=== PATIENT | female | born 1990 | race African-American/Black ===

== ENCOUNTER 2022-07-09 06:07 | Emergency (ER) | payer MEDICAID ==
[~2022-07-09] VITALS: Ht 182.9 cm; Wt 132.0 kg
[2022-07-09 06:45] VITALS: BP 134/85
[2022-07-09] MEDS ORDERED: ACETAMINOPHEN 325MG TABLET PO STA (07:13)
[2022-07-09] MEDS ORDERED: ONDANSETRON 4MG ODT PO ONE (07:15)
[2022-07-09 07:35] LABS: BASOPHILS % 0.3 % (0.0-2.0); EOSINOPHILS % 0.6 % (0.0-5.0); HEMATOCRIT. 35.7 % (36.0-48.0); HEMOGLOBIN. 12.2 g/dL (12.0-16.0); LYMPHOCYTES % 25.2 % (20.0-50.0); MEAN CORPUSCULAR HEMOGLOBIN 30.1 pg (28.0-32.0); MEAN CORPUSCULAR VOLUME 88.5 fL (81.0-99.0); MONOCYTES % 5.5 % (2.0-8.0); NEUTROPHILS % 68.4 % (40.0-76.0); PLATELET 434 x1000/uL (130-400); RED BLOOD CELL COUNT 4.04 mill/uL (4.2-5.4); RED CELL DISTRIBUTION WIDTH 15.6 % (11.6-14.6)
[2022-07-09 07:43] LABS: CHLORIDE 108 mEq/L (98-107)
[2022-07-09 08:55] LABS: CLARITY URINE CLOUDY (CLEAR); COLOR URINE YELLOW (YELLOW); KETONES URINE TRACE (NEGATIVE); LEUKOCYTE ESTERASE URINE 2+ (NEGATIVE); NITRITE URINE NEGATIVE (NEGATIVE); OCCULT BLOOD URINE NEGATIVE (NEGATIVE); PH URINE 5.5 (4.5-8.0); PROTEIN URINE TRACE (NEGATIVE); SPECIFIC GRAVITY URINE 1.024 (1.005-1.030)
[2022-07-09] MEDS ORDERED: NITR100C PO (09:16)
[2022-07-09] MEDS ORDERED: TOPUD PO (09:16)
== END 2022-07-09 09:44 | disposition home or self-care (01) ==
LOC: ER 06:07
DX: O20.0 Threatened abortion (principal); O23.41 Unspecified infection of urinary tract in pregnancy, first trimester; N39.0 Urinary tract infection, site not specified; Z3A.01 Less than 8 weeks gestation of pregnancy; Z88.6 Allergy status to analgesic agent
CPT/HCPCS: 36415; 76801; 76817; 80053; 81003; 81025; 84702; 85025; 86850; 86900; 86901; 99284; Q0162

== ENCOUNTER 2022-08-17 22:06 | Emergency (ER) | payer MEDICAID ==
[~2022-08-17] VITALS: Ht 185.4 cm; Wt 128.2 kg
[~2022-08-17 22:06] MED LIST: NITR100C PO; TOPUD PO
[2022-08-17 22:13] VITALS: BP 146/74
[2022-08-18] MEDS ORDERED: ACETAMINOPHEN 325MG TABLET PO ONE (00:15)
[2022-08-18] MEDS ORDERED: ALBU18HF2 IH (00:52)
== END 2022-08-18 01:06 | disposition home or self-care (01) ==
LOC: ER 22:06
DX: O98.511 Other viral diseases complicating pregnancy, first trimester (principal); U07.1 COVID-19; O26.891 Other specified pregnancy related conditions, first trimester; R03.0 Elevated blood-pressure reading, without diagnosis of hypertension; Z3A.10 10 weeks gestation of pregnancy
CPT/HCPCS: 93005; 99283

== ENCOUNTER 2023-01-01 12:08 | Observation (INO) | payer MEDICAID, OTHER ==
[~2023-01-01] VITALS: Ht 185.4 cm; Wt 128.8 kg
[~2023-01-01 12:08] MED LIST changes: +ALBU18HF2 IH
[2023-01-01] MEDS ORDERED: FOLI-43 PO (12:35)
[2023-01-01] MEDS ORDERED: FERR325T6 PO (12:36)
[2023-01-01] MEDS ORDERED: PNV1TABL76 MT (12:36)
== END 2023-01-01 15:10 | disposition home or self-care (01) ==
LOC: 8 EST A/PP 12:08
PROVIDERS: ADMIT Obstetrics & Gynecology; ATTEND Obstetrics & Gynecology
DX: O36.8130 Decreased fetal movements, third trimester, not applicable or unspecified (principal); Z3A.32 32 weeks gestation of pregnancy
CPT/HCPCS: 59025; 76805; 76818; G0378; 99281

== ENCOUNTER 2024-12-22 11:49 | Emergency (ER) | payer MEDICAID, OTHER ==
[~2024-12-22] VITALS: Ht 185.4 cm; Wt 143.0 kg
[~2024-12-22 11:49] MED LIST changes: +FERR325T6 PO; +FOLI-43 PO; +PNV1TABL76 MT
[2024-12-22 11:58] VITALS: O2SAT 95
[2024-12-22 12:01] VITALS: BP 120/69; PULSE 94; RESP 18; TEMP 36.9; O2SAT 97
[2024-12-22 12:23] LABS: HEMATOCRIT. 36.9 % (36.0-48.0); MEAN CORPUSCULAR HEMOGLOBIN 28.2 pg (28.0-32.0); MEAN CORPUSCULAR HGB CONC 32.5 g/dL (31.0-37.0); MEAN CORPUSCULAR VOLUME 86.7 fL (81.0-99.0); MEAN PLATELET VOLUME 7.6 fl (7.4-10.4); PLATELET 454 x1000/uL (130-400); RED BLOOD CELL COUNT 4.26 mill/uL (4.2-5.4); WHITE BLOOD COUNT 7.9 x1000/uL (4.5-11.0)
[2024-12-22 12:38] LABS: CHLORIDE 106 mEq/L (98-107); POTASSIUM 4.2 mEq/L (3.5-5.1); SODIUM 142 mEq/L (136-145)
[2024-12-22 12:39] LABS: CARBON DIOXIDE 28 mEq/L (21-32); DIFFERENTIAL COMMENT 1
[2024-12-22 12:40] LABS: CALCIUM 9.3 mg/dL (8.7-10.4)
[2024-12-22 12:44] LABS: CREATININE 0.7 mg/dL (0.6-1.0); GLUCOSE 100 mg/dL (70-105); UREA NITROGEN BLOOD 12 mg/dL (9-23)
[2024-12-22 12:46] LABS: ALANINE AMINOTRANSFERASE 10 IU/L (10-49); ALBUMIN 4.2 g/dL (3.2-4.8); ASPARTATE AMINOTRANSFERASE 11 IU/L (<34)
[2024-12-22 12:47] LABS: BILIRUBIN TOTAL 0.3 mg/dL (0.1-1.0); PROTEIN TOTAL 7.8 g/dL (6.0-8.3)
[2024-12-22 12:53] LABS: BILIRUBIN DIRECT < 0.1 mg/dL (<=3.0)
[2024-12-22 13:28] LABS: PLATELET ESTIMATE INCREASED
[2024-12-22] MEDS ORDERED: DICYCLOMINE 10 MG/5 ML ORAL SYR PO STA (13:43)
[2024-12-22] MEDS: DICYCLOMINE HCL 10MG CAPSULE PO NR (14:06)
[2024-12-22] MEDS: ONDANSETRON 4MG ODT PO STA (14:06)
[2024-12-22] MEDS: MAGNESIUM/ALUMINUM HYDROXIDE/SIMETHICONE 30ML UDC PO STA (14:06)
[2024-12-22] MEDS ORDERED: ONDA-239 PO (14:55)
[2024-12-22 15:04] LABS: HCG SCREEN NEGATIVE
== END 2024-12-22 15:01 | disposition home or self-care (01) ==
LOC: ER 11:49
DX: A08.4 Viral intestinal infection, unspecified (principal); Z88.6 Allergy status to analgesic agent; Z79.899 Other long term (current) drug therapy; Z98.51 Tubal ligation status
CPT/HCPCS: 99284; 80076; 80048; 84703; 83690; 85025; 36415; Q0162

== ENCOUNTER 2025-03-15 23:44 | Emergency (ER) | payer MEDICAID ==
[~2025-03-15] VITALS: Ht 185.4 cm; Wt 146.0 kg
[~2025-03-15 23:44] MED LIST changes: +ONDA-239 PO
[2025-03-16 00:12] VITALS: O2SAT 97
[2025-03-16] MEDS: ACETAMINOPHEN 500MG TABLET PO ONE (01:53)
[2025-03-16] MEDS: TETANUS, DIPHTHERIA, PERTUSSIS VAC/PF 0.5ML (>10YR OLD) IM ONE (01:54)
[2025-03-16] MEDS: BACITRACIN ZINC OINT UDPKT TOP ONE (01:55)
[2025-03-16] MEDS: LIDOCAINE HCL/PF 1% 10 MG/ML 5ML VIAL INFIL ONE (01:55)
[2025-03-16 02:36] VITALS: BP 143/90; PULSE 74; RESP 16; TEMP 36.5; O2SAT 100
== END 2025-03-16 02:39 | disposition home or self-care (01) ==
LOC: ER 23:44
DX: S81.012A Laceration without foreign body, left knee, initial encounter (principal); Z79.899 Other long term (current) drug therapy; Z88.6 Allergy status to analgesic agent; W10.9XXA Fall (on) (from) unspecified stairs and steps, initial encounter; Y93.89 Activity, other specified; Y92.89 Other specified places as the place of occurrence of the external cause; Y99.8 Other external cause status
CPT/HCPCS: 73560; 12002; 99283; 90715; 90471; J2003; Z7610 ×2

== ENCOUNTER 2025-03-24 14:53 | Emergency (ER) | payer MEDICAID ==
[~2025-03-24] VITALS: Ht 172.7 cm; Wt 99.8 kg
[2025-03-24 15:11] VITALS: O2SAT 100
[2025-03-24] MEDS: BACITRACIN ZINC OINT UDPKT TOP ONE (17:00)
[2025-03-24] MEDS ORDERED: MUPI1OIN4 TP (17:58)
[2025-03-24 18:37] VITALS: BP 129/78; PULSE 64; RESP 14; TEMP 36.8; O2SAT 100
== END 2025-03-24 18:41 | disposition home or self-care (01) ==
LOC: ER 14:53
DX: S81.012D Laceration without foreign body, left knee, subsequent encounter (principal); L01.00 Impetigo, unspecified; Z88.6 Allergy status to analgesic agent; X58.XXXD Exposure to other specified factors, subsequent encounter
CPT/HCPCS: 99283; Z7610 ×2

== ENCOUNTER 2025-03-28 05:57 | Emergency (ER) | payer MEDICAID ==
[~2025-03-28] VITALS: Ht 185.4 cm; Wt 145.0 kg
[~2025-03-28 05:57] MED LIST changes: +MUPI1OIN4 TP
[2025-03-28 06:06] VITALS: O2SAT 99
[2025-03-28 06:11] VITALS: BP 124/82; PULSE 77; RESP 16; TEMP 37.1; O2SAT 100
== END 2025-03-28 07:00 | disposition home or self-care (01) ==
LOC: ER 05:57
DX: S81.812D Laceration without foreign body, left lower leg, subsequent encounter (principal); Z88.6 Allergy status to analgesic agent; X58.XXXD Exposure to other specified factors, subsequent encounter
CPT/HCPCS: 99281